=== PATIENT | male | born 1950 | race Caucasian/White ===

== ENCOUNTER → 2018-06-20 | Outpatient (CLI) | payer OTHER, MEDICARE | LOC: GIMAGING 11:26 | PROVIDERS: ATTEND Nurse Practitioner | DX: M54.5 Low back pain (principal); M62.838 Other muscle spasm | CPT/HCPCS: 72100-PO ==

== ENCOUNTER → 2018-08-09 | Outpatient (CLI) | payer OTHER, MEDICARE | LOC: GIMAGING 08:46 ==